=== PATIENT | female | born 1990 | race Caucasian/White ===

== ENCOUNTER → 2020-02-06 07:02 | Outpatient (CLI) | payer OTHER, SELFPAY ==
[2020-02-06 08:03] LABS: Add Manual Diff / Slide Review NO; Basophils Absolute Auto 100 /uL (0-100); Basophils Percent Auto 0.8 % (0-2); Eosinophils Absolute Auto 400 /uL (0-450); Eosinophils Percent Auto 5.7 % (2-4); Hematocrit 38.7 % (36-46); Hemoglobin 13.2 g/dL (12.0-16.0); Lymphocytes Absolute Auto 2000 /uL (1100-4500); Mean Corpuscular HGB Conc 34.2 % (30-36); Mean Corpuscular Hemoglobin 30.1 PG (26-34); Mean Corpuscular Volume 87.8 fL (80-100); Monocytes Absolute Auto 600 /uL (0-900); Monocytes Percent Auto 8.5 % (3-14); Neutrophils Absolute Auto 3700 /uL (1500-7000); Platelet Count 277 X10^3/uL (150-400); Red Blood Cell Count 4.41 X10^6/uL (4.0-5.2); Red Cell Distribution Width 13.1 % (11.6-14.8); White Blood Cell Count 6.8 X10^3/uL (4.5-11.0)
[2020-02-06 08:25] LABS: BUN Creatinine Ratio 17.1 (6-22); Blood Urea Nitrogen 12 mg/dL (7-17); Calcium 9.5 mg/dL (8.4-10.2); Carbon Dioxide 23 mmol/L (22-32); Chloride 107 mmol/L (98-107); Cholesterol 133 mg/dL (140-199); Estimated Glomerular Filt Rate > 60.0 mL/min (>60); Glucose 94 mg/dL (70-100); HDL Cholesterol 46 mg/dL (40-60); HEMOLYSIS < 15 (0-50); LDL Cholesterol Calculated 72 mg/dL (<100); Potassium 4.3 mmol/L (3.4-5.1); Sodium 139 mmol/L (137-145); Triglycerides 76 mg/dL (35-150)
[2020-02-06 08:35] LABS: Vitamin D 25 Hydroxy (D3) 43.1 ng/mL (30.0-100.0)
== END ==
PROVIDERS: PCP Family Medicine; Referring Provider Family Medicine; Visit Provider Family Medicine
DX: E55.9 Vitamin D deficiency, unspecified (principal); Z82.49 Family history of ischemic heart disease and other diseases of the circulatory system
CPT/HCPCS: 36415; 80048; 80061; 82306; 85025

== ENCOUNTER → 2022-07-24 16:57 | Outpatient (CLI) | payer OTHER, SELFPAY ==
[2022-07-24 20:03] LABS: Urine N gonorrhoeae NOT DETECTED
[2022-07-24 20:07] LABS: Urine Chlamydia NOT DETECTED
== END ==
PROVIDERS: PCP Family Medicine; Visit Provider Obstetrics & Gynecology
DX: Z34.01 Encounter for supervision of normal first pregnancy, first trimester (principal); Z3A.09 9 weeks gestation of pregnancy
CPT/HCPCS: 87491; 87591

== ENCOUNTER → 2022-08-24 14:04 | Outpatient (CLI) | payer OTHER, SELFPAY ==
[2022-08-24 14:38] LABS: Add Manual Diff / Slide Review NO; Basophils Absolute Auto 100 /uL (0-100); Basophils Percent Auto 0.6 % (0-2); Eosinophils Absolute Auto 300 /uL (0-450); Eosinophils Percent Auto 2.6 % (2-4); Hematocrit 35.5 % (36-46); Hemoglobin 12.1 g/dL (12.0-16.0); Lymphocytes Absolute Auto 2200 /uL (1100-4500); Lymphocytes Percent Auto 16.5 % (25-40); Mean Corpuscular Hemoglobin 30.1 PG (26-34); Mean Corpuscular Volume 88.3 fL (80-100); Monocytes Absolute Auto 1000 /uL (0-900); Monocytes Percent Auto 7.6 % (3-14); Neutrophils Absolute Auto 9600 /uL (1500-7000); Neutrophils Percent Auto 72.7 % (50-75); Platelet Count 309 X10^3/uL (150-400); Red Blood Cell Count 4.02 X10^6/uL (4.0-5.2); Red Cell Distribution Width 13.7 % (11.6-14.8); White Blood Cell Count 13.2 X10^3/uL (4.5-11.0)
[2022-08-24 16:37] LABS: HIV 1 & 2 Ab/Ag 4th Gen Combo NEGATIVE (NEGATIVE); Hep C Virus Ab w/Reflex Quant NEGATIVE s/c (NEGATIVE); Hepatitis B Surface Antigen NEGATIVE s/c (NEGATIVE); Rubella Antibody IgG 85.2 IU/mL (>15)
[2022-08-25 07:17] LABS: Varicella IgG Antibody 1230 index (Immune >165)
[2022-08-25 09:01] LABS: RPR Screen Non Reactive (Non Reactive)
== END ==
PROVIDERS: Referring Provider Obstetrics & Gynecology; Visit Provider Obstetrics & Gynecology
DX: Z34.01 Encounter for supervision of normal first pregnancy, first trimester (principal)
CPT/HCPCS: 36415; 80055; 86787; 86803; 86850; 86900; 86901; 87389

== ENCOUNTER → 2022-10-02 08:47 | Outpatient (CLI) | payer OTHER, SELFPAY ==
[2022-10-02 14:00] LABS: Appearance Urine UA CLEAR; Bilirubin Urine UA NEGATIVE (NEGATIVE); Color Urine UA LT. YELLOW; Glucose Urine UA NEGATIVE (Negative); Ketones Urine UA NEGATIVE (NEGATIVE); Leukocyte Esterase Urine UA NEGATIVE (NEGATIVE); Nitrite Urine UA NEGATIVE (Negative); Occult Blood Urine UA NEGATIVE (Negative); Protein Urine UA NEGATIVE (Negative); Urobilinogen Urine UA 0.2 E.U./dL (0.2)
[2022-10-02 14:04] LABS: pH Urine UA 5.5 (4.5-8.0)
== END ==
PROVIDERS: Visit Provider Obstetrics & Gynecology
DX: Z34.01 Encounter for supervision of normal first pregnancy, first trimester (principal)
CPT/HCPCS: 81003; 87086

== ENCOUNTER → 2022-10-09 10:09 | Outpatient (CLI) | payer OTHER, SELFPAY ==
--- NOTE | 2022-10-09 10:10 | DI.US.S_ITS ---
PROCEDURE: US OB >= 14 WEEKS FETUS INDICATIONS: ANATOMY OUTSIDE/PRIOR DATING DATA: Last menstrual period (LMP): 05/19/2022. LMP-based estimated date of delivery (ARVIND): 02/23/2023. First dating scan (date and location): 10/09/2022. Estimated date of delivery (ARVIND) from first dating scan: 02/21/2020. The calculations are made using the working ARVIND of 02/23/2023. TECHNIQUE: Real-time scanning was performed of the fetus, with image documentation and biometric measurements. Endovaginal scanning: Multiple formed. COMPARISON: None. FINDINGS: General: A single living intrauterine gestation is present. Presentation: Breech. Placenta: Placental position is posterior fundal, without previa. Amniotic fluid index: 1 8.9 cm, normal range is 5-24 cm. Single deepest vertical pocket is 5.3 cm. heart rate: 141 beats per minute. Maternal cervical canal: 4.3 cm long. Normal lower limit is 2.5 cm. biometrics: Biparietal diameter: 21 weeks 2 days Head circumference: 20 weeks 6 days Abdominal circumference: 21 weeks 1 day Femur length: 20 weeks 2 days Clinically estimated gestational age: 20 weeks 3 days Composite gestational age from present scan: 20 weeks 6 days Estimated weight and percentile: 376 g; 65% Anatomic survey: Neuro: Ventricles are non-dilated at less than 10 mm. Cisterna magna is normal at 3-11 mm. Cerebellum is normal in size and morphology. Nuchal skin fold: Normal at less than 6 mm between 14-21 weeks gestational age. Face: Nose and lips, facial profile are normal. Spine: No evidence for spina bifida. Heart: 4-chambered heart is present, with normal ventricular outflow tracts. Diaphragm: Diaphragm is intact. Stomach: Left-sided stomach is present. Kidneys: No hydronephrosis. Normal is less than 5 mm in 2nd trimester, less than 7 mm in 3rd trimester. Cord: 3-vessel cord has orthotopic insertion. Bladder: Normal in size. Extremities: All 4 extremities identified. IMPRESSION: 1. A single living intrauterine gestation with an estimated gestational age of 20 weeks 6 days corresponding to ultrasound ARVIND 02/20/2023. Ultrasound dating concordant with clinical dating 2. Normal anatomic survey. We strive to produce accurate, complete, and clear reports of imaging services. To assist us in improving patient care, this report was composed using standard report templates and voice recognition software. Therefore, it may contain abnormal punctuation, insertions and/or omissions. Occasional wrong-word or sound-alike substitutions may occur. Though we review the report and make efforts to correct it, we do recommend that the report be read carefully in proper context to recognize any text inaccuracies. Dictated by: Tara Knowles M.D. on 10/09/2022 at 12:24 Approved by: Tara Knowles M.D. on 10/09/2022 at 12:28
== END ==
PROVIDERS: PCP Family Medicine; Referring Provider Obstetrics & Gynecology; Visit Provider Obstetrics & Gynecology
DX: Z34.02 Encounter for supervision of normal first pregnancy, second trimester (principal); Z3A.20 20 weeks gestation of pregnancy
CPT/HCPCS: 76811

== ENCOUNTER → 2022-11-14 14:04 | Outpatient (CLI) | payer OTHER, SELFPAY ==
[2022-11-14 16:03] LABS: GTT (PREG) 1 Hour PP 50gm Dose 141 mg/dL (76-139)
[2022-11-14 16:12] LABS: Hematocrit 36.7 % (36-46); Hemoglobin 12.4 g/dL (12.0-16.0)
== END ==
PROVIDERS: PCP Family Medicine; Referring Provider Obstetrics & Gynecology; Visit Provider Obstetrics & Gynecology
DX: Z34.02 Encounter for supervision of normal first pregnancy, second trimester (principal); Z3A.26 26 weeks gestation of pregnancy
CPT/HCPCS: 36415; 82950; 85014; 85018

== ENCOUNTER → 2022-11-27 07:51 | Outpatient (CLI) | payer OTHER, SELFPAY ==
[2022-11-27 08:52] LABS: Glucose Fasting Gestational 83 mg/dL (76-95)
[2022-11-27 10:31] LABS: Glucose 1 Hour Gest 141 mg/dL (76-180)
[2022-11-27 11:12] LABS: Glucose Tol Interp,Gestational INTERPRETATION
[2022-11-27 11:35] LABS: Glucose 2 Hour Gest 151 mg/dL (76-155)
[2022-11-27 12:37] LABS: Glucose 3 Hour Gest 100 mg/dL (76-140)
== END ==
PROVIDERS: PCP Family Medicine; Referring Provider Obstetrics & Gynecology; Visit Provider Obstetrics & Gynecology
DX: R73.09 Other abnormal glucose (principal)
CPT/HCPCS: 36415; 82951; 82952

== ENCOUNTER → 2023-01-30 10:46 | Outpatient (CLI) | payer OTHER, SELFPAY ==
[2023-01-31 11:36] LABS: Strep Grp B PCR NEG for Grp B Strep
== END ==
PROVIDERS: PCP Family Medicine; Visit Provider Obstetrics & Gynecology
DX: Z34.03 Encounter for supervision of normal first pregnancy, third trimester (principal); Z3A.36 36 weeks gestation of pregnancy
CPT/HCPCS: 87653

== ENCOUNTER 2023-02-11 11:19 | Inpatient (IN) | payer OTHER, SELFPAY ==
--- NOTE | 2023-02-11 12:46 | P.HPOB_ITS ---
OB HPI Date/Time Date of admission: 02/11/23 Date Patient Seen: 02/11/23 Time Patient Seen: 12:47 History of Present Condition Chief complaint: Labor ARVIND Calculator Estimated Delivery Date Method Current WG Current Estimate 02/23/23 LMP (Certain) 38w 2d Other Estimates 02/23/23 Ultrasound #1 38w 2d Estimated Gestational Age (weeks): 38+2 : 1 Para: 0 care: good care, initiated at week # (9), number of visits (9) and pounds weight gain (30) Dating criteria OB: LMP confirmed by 1st trimester US Ultrasounds: normal 1st trimester US and normal mid trimester US Obstetrical complications: none Medical complications OB: none Indications Other reason(s) for admission: Active labor Preadmission Labs Last OB Lab Results: Blood Type A Positive 08/24/22 14:18 Antibody Screen Negative 08/24/22 14:18 Hematocrit 36.7 % (36-46) 11/14/22 15:15 Hemoglobin 12.4 g/dL (12.0-16.0) 11/14/22 15:15 Hepatitis B Surface Antigen Negative s/c (NEGATIVE) 08/24/22 14 :18 Hepatitis C Antibody Negative s/c (NEGATIVE) 08/24/22 14:18 Rubella Antibody 85.2 IU/mL (>15) 08/24/22 14:18 Varicella-Zoster IgG Antibody 1230 index (Immune >165) 08/24/22 14:18 Glucose 1 Hour 141 mg/dL (76-139) H 11/14/22 14:10 Group B Streptococcus (PCR) Neg for grp b strep 01/30/23 10:46 -: Chlamydia screen: negative, Gonorrhea screen: negative and Urine: negative -: PAP smear: Normal External Labs -: Urine: negative Evaluation Evaluation Baseline heart rate: 135 Variability: Moderate (11-25) monitor accelerations: Present Monitor Decelerations: Variable (mild) Contraction Frequency (minutes): 2 Uterine Contraction Intensity: Strong/Firm Dilation (cm): 8 Effacement (%): 100 Dilation: >/=5 cm Effacement: >/=80% station: -1 Position of cervix: anterior Consistency: soft Pate score: 12 Comments: Bulging membranes [facility] Medical History (Updated 12/23/22 @ 22:55 by Kristal Palma MD) Encounter for routine adult health examination without abnormal findings Family history of heart disease Physical exam, annual Toe problem Vitamin D deficiency Well woman exam with routine gynecological exam Surgical History (Updated 07/10/22 @ 14:16 by Annemarie Smith, RN) History of foot surgery History of tonsillectomy [place] teeth extracted Family History (Updated 07/10/22 @ 14:19 by Annemarie Smith, RN) Grandfather Myocardial infarction Mother Atrial fibrillation Family/Other Diabetes mellitus Family/Other Heart disease Grandmother Diabetes mellitus Social History marital status: number of children: 0 household members: spouse lives independently: Yes caregiver/support person: No housing: house pets and animals: Yes (2 dogs, 1 cat. 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, aware of precautions) special elver needs: No travel history: recent (domestic only) seatbelt use: always helmet use: Yes water heater temp set < 120 deg: Yes working smoke detector in home: Yes fire extinguisher in home: No carbon monox detector in home: Yes firearms in home: Yes firearms unloaded and locked: Yes do you feel safe at home: Yes Smoking Status: Never smoker second hand exposure: No alcohol intake: former (1-2/week prior to ) substance use type: marijuana (not while ) during the past year weight has: remained stable well-balanced diet: daily or most days daily servings fruits/ve-4 caffeine: Yes (aware of 200mg limit) Type(s) of exercise: aerobic, bicycling and running frequency: 5-6 times per week Meds Home Medications and Allergies Home Medications Medication Instructions Recorded Confirmed Type cetirizine 10 mg tablet 10 mg PO QDAYP PRN ##0 11/14/16 01/30/23 History glucosamine 500 cap PO 07/10/22 01/30/23 History rq-sprrsygbj-qjyjdzad comp 400 mg-D3 667 unit-C-Mn cap prenat.vits,delfino,ece-tehu-jitng 1 tab PO DAILY 07/10/22 01/30/23 History Allergies Allergy/AdvReac Type Severity Reaction Status Date / Time Sulfa (Sulfonamide AdvReac Severe FACIAL Unverified 01/30/23 10:01 Antibiotics) SWELLING [SULFA (SULFONAMIDE ANTIBIOTICS)] amoxicillin [AMOXICILLIN] AdvReac Mild RASH Unverified 01/30/23 10:01 clavulanic acid AdvReac Mild RASH Unverified 01/30/23 10:01 [CLAVULANIC ACID] Penicillins [PENICILLINS] AdvReac Mild RASH Unverified 01/30/23 10:01 OB Exam Narrative Exam Narrative: Generally: Patient moderately uncomfortable with contractions at side of bed Fundal height: 40 cm EFW: 8# Ext: 1+ edema Assessment and Plan Assessment and Plan Assessment and Plan narrative: Assessment: 32-year-old 1 para 0 at 38+2 weeks gestation in active labor GBS negative Plan: Expected management to spontaneous vaginal delivery Artificial rupture of membranes if patient desires Time Spent with Patient Total time spent with greater than 50% in coordination of care (as documented) at patient's floor/unit and/or counseling patient:: 15-24 minutes
[2023-02-11 13:09] LABS: Add Manual Diff / Slide Review NO; Basophils Absolute Auto 100 /uL (0-100); Basophils Percent Auto 0.7 % (0-2); Eosinophils Absolute Auto 0 /uL (0-450); Eosinophils Percent Auto 0.2 % (2-4); Hematocrit 42.5 % (36-46); Hemoglobin 14.5 g/dL (12.0-16.0); Lymphocytes Absolute Auto 1800 /uL (1100-4500); Lymphocytes Percent Auto 10.1 % (25-40); Mean Corpuscular HGB Conc 34.1 % (30-36); Mean Corpuscular Hemoglobin 29.3 PG (26-34); Mean Corpuscular Volume 85.8 fL (80-100); Monocytes Absolute Auto 800 /uL (0-900); Monocytes Percent Auto 4.6 % (3-14); Neutrophils Absolute Auto 15400 /uL (1500-7000); Neutrophils Percent Auto 84.4 % (50-75); Platelet Count 237 X10^3/uL (150-400); Red Blood Cell Count 4.96 X10^6/uL (4.0-5.2); Red Cell Distribution Width 13.8 % (11.6-14.8); White Blood Cell Count 18.2 X10^3/uL (4.5-11.0)
[2023-02-11] MEDS: ONDANSETRON 4 MG/2 ML INJ IV (13:31)
--- NOTE | 2023-02-11 14:17 | PM.OBPNLAB ---
Date/Time Date Patient Seen: 02/11/23 Time Patient Seen: 14:00 Pain Control Comments: Very uncomfortable, requesting epidural Pelvic Exam Dilation (cm): 8 Effacement (%): 100 station: -1 Amniotic membrane status: Ruptured Contractions Contractions on admission: regular Monitor mode: External Contraction frequency (min): 3 Contraction duration (min): 1 Contraction intensity: Strong/Firm Status Heart Rate Baseline: 120 Monitor Accelerations: Present Monitor Decelerations: Variable Monitor Variability: Moderate Assessment and Plan Assessment: active labor Comments: Epidural Expectant management to
--- NOTE | 2023-02-11 16:31 | PM.OBPRVD ---
Labor & Delivery Delivery date: 02/11/23 Cervical ripening method: none Induction method: none Delivery monitor: external FHT and external uterine Route of delivery: Episiotomy description: None L&D Laceration Description: Periurethral - 1st Degree (left) Delivery repair: chromic (4-0) Quantitative Blood Loss: 100 Anesthesia Type: Local (for repair only) Complications: None Narrative: Patient complete and pushed times 48 minutes. At 2:58 p.m., a live male delivered spontaneously in the ROBBIE presentation, over an intact perineum. No nuchal cord. The remainder of the body delivered without difficulty and was placed on mom's abdomen. Pitocin was given in the IV fluids at a rate of 220 cc/hour. The cord was double clamped and cut after the cord stopped pulsing. Cord bloods were obtained. The placenta delivered intact with a three-vessel cord at 3:26 p.m.. The fundus was massaged to firm. A left periurethral first-degree laceration was repaired with 4-0 chromic with a ydcjmh-yk-evjgo suture. A red rubber catheter was placed into the urethra prior to repair. 5 cc of 1% lidocaine was used for the repair. Hemostasis was achieved. QBL 100 cc. Apgars 8 at 1 minute and 9 at 5 minutes. No epidural. Local for repair only. . Mom and stable to recovery. Baby 1: Infant gender: Male Presentation: vertex Position: Left Occiput Anterior Placenta delivery description: Spontaneous Cord Vessel Description: 3 Vessels and Clamped/Cut (after cord stopped pulsing) score (1 min): 8 score (5 min): 9 weight: 7 lb 12.3 oz Plan for aftercare: Routine care
[2023-02-11] MEDS: ACETAMINOPHEN 325 MG TABLET 650 MG PO (16:58)
[2023-02-11] MEDS: IBUPROFEN 600 MG TABLET PO (16:58)
[2023-02-11 18:19] VITALS: BP 120/79
[2023-02-12 06:31] LABS: Hemoglobin 11.6 g/dL (12.0-16.0)
[2023-02-12] MEDS: ACETAMINOPHEN 325 MG TABLET 650 MG PO (08:20)
[2023-02-12] MEDS: DOCUSATE 100 MG CAPSULE PO (08:20)
[2023-02-12] MEDS: PRENATAL VIT,CALC/IRON/FOLIC 1 TABLET 1 TAB PO (08:20)
[2023-02-12 11:03] VITALS: BP 120/79; RESP 16; TEMP 37
[2023-02-12 11:05] VITALS: BP 125/75; PULSE 88; RESP 16; TEMP 37
== END 2023-02-12 12:46 | disposition home or self-care (01) | DRG 807 ==
PROVIDERS: Advanced Practice Midwife; Admitting Provider Obstetrics & Gynecology; PCP Family Medicine; Referring Provider Nurse Practitioner Obstetrics & Gynecology; Visit Provider Nurse Practitioner Obstetrics & Gynecology
DX: O71.82 Other specified trauma to perineum and vulva (principal); Z37.0 Single live birth; Z3A.38 38 weeks gestation of pregnancy
CPT/HCPCS: 36415; 59050; 59400; 85014; 85018; 85025; 86850; 86900; 86901; G0379; J2405

== ENCOUNTER → 2025-02-12 19:54 | Outpatient (ROUT) | payer SELFPAY ==
[2025-02-12 20:33] LABS: HCG Quantitative /Beta subunit 5160.4 mIU/mL
== END ==
LOC: LAB 19:54
PROVIDERS: PCP Family Medicine; Visit Provider Nurse Practitioner Obstetrics & Gynecology
DX: N91.2 Amenorrhea, unspecified (principal)
CPT/HCPCS: 84702

== ENCOUNTER → 2025-02-13 11:55 | Outpatient (ROUT) | payer SELFPAY ==
[2025-02-13 12:34] LABS: HCG Quantitative /Beta subunit 8250.5 mIU/mL
== END ==
LOC: LAB 11:58
PROVIDERS: PCP Family Medicine; Visit Provider Nurse Practitioner Obstetrics & Gynecology
DX: N91.2 Amenorrhea, unspecified (principal)
CPT/HCPCS: 84702

== ENCOUNTER → 2025-03-12 09:52 | Outpatient (CLI) | payer BC, SELFPAY ==
[2025-03-12 12:20] LABS: Glucose Tol Interpretation INTERPRETATION
[2025-03-12 13:11] LABS: Glucose 2 Hour 135 mg/dL (70-140)
[2025-03-12 13:12] LABS: Glucose 1 Hour 112 mg/dL (70-170)
== END ==
PROVIDERS: PCP Family Medicine; Referring Provider Advanced Practice Midwife; Visit Provider Advanced Practice Midwife
DX: O99.810 Abnormal glucose complicating pregnancy (principal)
CPT/HCPCS: 36415; 82951; 82952

== ENCOUNTER → 2025-05-20 13:51 | Outpatient (CLI) | payer OTHER, SELFPAY ==
--- NOTE | 2025-05-20 13:52 | DI.US.S_ITS ---
PROCEDURE: US OB >= 14 WEEKS FETUS INDICATIONS: ANATOMY SCAN OUTSIDE/PRIOR DATING DATA: Last menstrual period (LMP): 12/23/24. LMP-based estimated date of delivery (ARVIND): 10/08/25. First dating scan (date and location): 03/06/25. Estimated date of delivery (ARVIND) from first dating scan: 10/08/25. The calculations are made using the working ARVIND of 10/08/25. TECHNIQUE: Real-time scanning was performed of the fetus, with image documentation and biometric measurements. Endovaginal scanning: No COMPARISON: [facility] [facility], , OB >= 14 WEEKS FETUS, 12/18/2022, 15:04. FINDINGS: General: A single living intrauterine gestation is present. Presentation: Variable. Placenta: Placental position is anterior and wrapping fundal to the left. Amniotic fluid index: 18.2 cm, normal range is 5-24 cm. Single deepest vertical pocket is 5.4 cm. heart rate: 139 beats per minute. Maternal cervical canal: Close in 6.2 cm long. Normal lower limit is 2.5 cm. biometrics: Biparietal diameter: 4.9 cm, 20 weeks five days Head circumference: 17.6 cm, 20 weeks one day Abdominal circumference: 5.7 cm, 20 weeks six days Femur length: 2.9 cm, 18 weeks six days Clinically estimated gestational age: 19 weeks six days Composite gestational age from present scan: 20 weeks one day Estimated weight and percentile: 327 g, 55th percentile Anatomic survey: Neuro: Ventricles are non-dilated at less than 10 mm. Cisterna magna is normal at 3-11 mm. Cerebellum is normal in size and morphology. Nuchal skin fold: Normal at less than 6 mm between 14-21 weeks gestational age. Face: Nose and lips, facial profile are normal. Spine: No evidence for spina bifida. Heart: 4-chambered heart is present, with normal ventricular outflow tracts. Diaphragm: Diaphragm is intact. Stomach: Left-sided stomach is present. Kidneys: No hydronephrosis. Normal is less than 5 mm in 2nd trimester, less than 7 mm in 3rd trimester. Cord: 3-vessel cord has orthotopic insertion. The placental cord origin was not well seen. Bladder: Normal in size. Extremities: All 4 extremities identified. IMPRESSION: Single live intrauterine with estimated weight at the 55th percentile. Composite gestational age is within good agreement of the clinically estimated gestational age. Normal anatomy. Anterior placenta wrapping fundal and to the right. The placental umbilical cord origin is not well seen. Recommend follow-up in one week for re-evaluation. Closed cervix and normal amniotic fluid volume. We strive to produce accurate, complete, and clear reports of imaging services. To assist us in improving patient care, this report was composed using standard report templates and voice recognition software. Therefore, it may contain abnormal punctuation, insertions and/or omissions. Occasional wrong-word or sound-alike substitutions may occur. Though we review the report and make efforts to correct it, we do recommend that the report be read carefully in proper context to recognize any text inaccuracies. Dictated by: Skylar Booth M.D. on 05/26/2025 at 14:14 Approved by: Skylar Booth M.D. on 05/26/2025 at 14:30
== END ==
LOC: US 13:52
PROVIDERS: PCP Family Medicine; Referring Provider Advanced Practice Midwife; Visit Provider Advanced Practice Midwife
DX: Z34.92 Encounter for supervision of normal pregnancy, unspecified, second trimester (principal); Z3A.20 20 weeks gestation of pregnancy
CPT/HCPCS: 76811

== ENCOUNTER → 2025-06-18 15:56 | Outpatient (CLI) | payer OTHER, SELFPAY ==
--- NOTE | 2025-06-18 15:58 | DI.US.S_ITS ---
PROCEDURE: US OB FOLLOW UP INDICATIONS: PLACENTAL CORD INSERTION NOT WELL SEEN OUTSIDE/PRIOR DATING DATA: Working ARVIND: 10/08/2025 TECHNIQUE: Real-time scanning was performed of the fetus, with image documentation. Endovaginal scanning: Not obtained COMPARISON: [facility], , OB >= 14 WEEKS FETUS, 05/20/2025, 14:10. FINDINGS: A single living intrauterine gestation is present. Presentation: Transverse. Placenta: Placental position is predominantly right anterior with fundal component. Placenta may be bilobed in morphology. Cord insertion is eccentric from the placenta in origin remains difficult to visualize. Cannot exclude insertion into the placental wall. Amniotic fluid index: 22 cm, normal range is 5-24 cm. Single deepest vertical pocket is 6.6 cm. heart rate: 147 beats per minute. Maternal cervical canal: 5.7 cm long. Normal lower limit is 2.5 cm. Clinically estimated gestational age: 24 weeks 0 days IMPRESSION: Single live intrauterine with gestational age of 24 weeks 0 days. Cord insertion remains difficult to visualize. Eccentric insertion cannot be excluded. Placenta appears to have a bilobed appearance, possibly contributing to decreased visualization of cord insertion. Dictated by: Yvonne Colón M.D. on 06/19/2025 at 18:55 Approved by: Yvonne Colón M.D. on 06/19/2025 at 18:58
== END ==
LOC: US 15:57
PROVIDERS: PCP Family Medicine; Referring Provider Nurse Practitioner Obstetrics & Gynecology; Visit Provider Nurse Practitioner Obstetrics & Gynecology
DX: Z34.82 Encounter for supervision of other normal pregnancy, second trimester (principal); Z3A.22 22 weeks gestation of pregnancy
CPT/HCPCS: 76816

== ENCOUNTER → 2025-07-30 07:50 | Outpatient (CLI) | payer OTHER, SELFPAY ==
[2025-07-30 09:32] LABS: Glucose 1 Hour 179 mg/dL (70-170)
[2025-07-30 10:53] LABS: Glucose 2 Hour 127 mg/dL (70-140)
[2025-07-30 11:04] LABS: Glucose Tol Interpretation INTERPRETATION
[2025-07-30 11:47] LABS: Glucose 3 Hour 150 mg/dL (70-115)
== END ==
PROVIDERS: PCP Family Medicine; Referring Provider Family Medicine; Visit Provider Advanced Practice Midwife
DX: O09.811 Supervision of pregnancy resulting from assisted reproductive technology, first trimester (principal)
CPT/HCPCS: 36415; 82951; 82952